=== PATIENT | female | born 2000 | race Caucasian/White ===

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

== ENCOUNTER 2022-11-13 06:48 | Emergency (ER) | payer BC, SELFPAY ==
[2022-11-13 06:49] VITALS: BP 149/87; PULSE 96; RESP 18; TEMP 36.1; O2SAT 98; BMI 37.2
--- NOTE | 2022-11-13 07:15 | ED.VIS.GI ---
HPI HPI - GI History of Present Illness Chief Complaint: Abd Pain Informant: patient Narrative Narrative: Patient is a 22 year old female with no significant past medical history presenting with worsening upper abdominal pain and vomiting. Patient states she had similar symptoms about a month ago around the time her menstrual cycle is due. She notes over the past 2 weeks she has had an increase in frequency of these episodes. She states that upper abdominal pain more in her epigastric region but radiates around her back. States it is sharp. The pain is intermittent. When she does get these episodes she will vomit. She is usually the vomiting makes her feel better but not lately. She notes she had 2 nights last week where she had the symptoms and has been more frequent this week. He reports that her symptoms were worse this week in the morning. She notes that Pepto-Bismol seems to help. She also tried Gas-X without able to keep it down. She had a decrease in the amount of bowel movements. Said darker stools from the Pepto but denies any blood in her stool. Denies any fever or chills. Did try bland diet for the past few days with no help. Denies any known history of GERD or stomach ulcers. Never had any abdominal surgeries. Last menstrual period was about a month ago. She denies any urinary symptoms. Denies any blood in her vomit. No other complaints at this time. Tobacco or illicit drug use. Intermittently drinks alcohol but nothing recently PFSH PFS Home Medications omeprazole 20 mg capsule,delayed release 20 mg PO DAILY #30 CAPSULES 11/13/22 [Rx Last Taken Unknown] ondansetron 4 mg disintegrating tablet 4 mg PO Q8H PRN PRN Nausea #10 tabs 11/13/22 [Rx Last Taken Unknown] Allergy/AdvReac Type Severity Reaction Status Date / Time No Known Allergies Allergy Verified 11/13/22 06:52 Social History Smoking Status: Never smoker ROS ROS ED Constitutional Constitutional ED: Denies chills or fever(s) Cardiovascular Cardiovascular: Denies chest pain Respiratory/Chest Respiratory/Chest: Denies cough or dyspnea Gastrointestinal Gastrointestinal: Reports abdominal pain, nausea and vomiting; Denies constipation, diarrhea or melena Genitourinary Genitourinary ED: Denies dysuria, hematuria or urinary frequency Musculoskeletal Musculoskeletal: Reports back pain; Denies arthralgias or myalgias Integumentary Denies rash Neurologic Neurologic: Denies headache(s) Psychiatric Psychiatric: Denies anxiety EXAM Physical Exam Const Vital Signs: 11/13/22 06:49 11/13/22 08:49 11/13/22 10:39 Temperature 96.9 F L Temperature Source Temporal Pulse Rate 96 86 68 Respiratory Rate 18 16 16 Blood Pressure 149/87 H 136/78 H 138/77 H Blood Pressure Mean 107 97 97 Pulse Ox 98 98 98 Oxygen Delivery Method Room Air Room Air Room Air Positive well nourished and well developed General Appearance ED: well developed and NAD; Negative for pallor HEENT Reports moist mucous membranes normocephalic and atraumatic Eyes PERRL and EOMs intact bilaterally General Eye ED: Negative for scleral icterus Neck supple Resp normal respiratory effort and clear to auscultation bilaterally Cardio regular rate, regular rhythm and no murmurs GI Inspection: Negative for abdominal distention Auscultation: normoactive bowel sounds Palpation: soft and tender epigastric and Adhikari's sign; Negative for guarding or rigid Back/Spine no CVA tenderness Extremity full ROM Neuro Sensorium / Orientation: alert, oriented to person, oriented to place and oriented to time Psych mental status grossly normal and thought process normal Skin no wounds General Skin Exam: Negative for jaundice or pallor MDM MDM MDM Narrative Medical decision making narrative: So if worsening episodes of upper abdominal pain and vomiting. Differential includes peptic ulcer disease, gastritis, cholecystitis and pancreatitis. We will give the patient IV fluids, show small dose of morphine and Zofran for symptom control. We will start with lab work and reevaluate Patient has some mild improvement with medication. Lab work largely normal. Normal CBC, normal white blood cell count, normal hemoglobin, normal CMP with a normal BUN to creatinine ratio. Her lipase is normal. Clinically no findings of labs consistent with acute infection, symptomatic anemia/active bleeding, she is a normal BUN to creatinine ratio is low suspicion for occult GI bleed. Labs are not consistent with pancreatitis or choledocholithiasis/ascending cholangitis. Urinalysis does show 150 ketones and some mild contamination. Is given a liter of IV fluids. Is given a GI cocktail and on repeat evaluation has further improvement of symptoms. Treat her for gastritis versus peptic ulcer disease. Will give referral for surgery as patient likely would benefit from an EGD given her symptomatology. Is given her first dose of pantoprazole in the ER will be started on PPI therapy. Counseled she can also take Tylenol for pain but should avoid NSAIDs. Discussed GERD diet and discussed that it is okay for her to take Pepto-Bismol, Maalox or Tums for breakthrough symptoms. Patient and significant other agreeable with plan of care. Patient discharged home in stable and improved condition. At this time I do not think patient requires any imaging as she does not have any acute laboratory normalities, fever surgical findings on abdominal exam suggestive of a more severe acute intra-abdominal process. Lab Data Attestation: I reviewed the patient's lab results. Labs: Laboratory Results - last 24 hr 11/13/22 11/13/22 07:00 07:05 WBC 10.3 RBC 4.93 Hgb 14.7 Hct 43.7 MCV 88.6 MCH 29.8 MCHC 33.6 RDW Std Deviation 39.5 RDW Coeff of Gonzalo 12.1 Plt Count 354 MPV 10.0 Immature Gran % (Auto) 0.400 Neut % (Auto) 67.2 Lymph % (Auto) 23.1 [place] % (Auto) 8.8 Eos % (Auto) 0.2 Baso % (Auto) 0.3 Absolute Neuts (auto) 6.9 Absolute Lymphs (auto) 2.38 Nucleated RBC % 0 Sodium 139 Potassium 3.9 Chloride 110 H Carbon Dioxide 23.0 Anion Gap 6 BUN 7 Creatinine 0.70 Estim Creat Clear Calc 106.05 Est GFR (MDRD) Af Amer 137 Est GFR (MDRD) Non-Af 113 BUN/Creatinine Ratio 10.0 Glucose 103 Calcium 9.2 Total Bilirubin 1.00 AST 17 ALT 34 Alkaline Phosphatase 104 Total Protein 8.3 H Albumin 4.0 Globulin 4.3 H Albumin/Globulin Ratio 0.9 Lipase 25 Urine Color Yellow Urine Clarity Clear Urine pH 5.0 Ur Specific [place] 1.025 Urine Protein 30 H Urine Glucose (UA) Normal Urine Ketones 150 A* Urine Occult Blood Negative Urine Nitrite Negative Urine Bilirubin 1 H Urine Urobilinogen 1 H Ur Leukocyte Esterase 25 H Urine RBC 0 SEEN Urine WBC 0-5 SEEN Ur Squamous Epith Cells 0-5 SEEN Urine Bacteria 1+ Urine Mucus 0 SEEN Urine Test Negative Discharge Plan Triage Chief Complaint: Abd Pain ED Provider: Godman,Camila Dx/Rx/DC Orders Clinical Impression: Epigastric abdominal pain, Nausea & vomiting Instructions: ED Epigastric Pain Uncertain Cause Prescriptions: New omeprazole 20 mg capsule,delayed release(DR/EC) 20 mg PO DAILY Qty: 30 0RF ondansetron 4 mg tablet,disintegrating 4 mg PO Q8H PRN PRN (Reason: Nausea) Qty: 10 0RF Primary Care Provider: Care Physician,No Primary Referrals: Jerardo Smyth MD [Med Staff - Active Staff] - As soon as possible Care Physician,No Primary [Primary Care Provider] - Activity Restrictions/Additional Instructions: Your lab work was normal today. I do not think you need any CT or ultrasound at this time. If you develop a fever or have a progression or worsening your symptoms please return to the emergency room. I am concerned that you could have a stomach ulcer. Please follow-up with surgery for further evaluation of this pain. Try to adhere to a low acid diet as we discussed. You may take Tylenol but please avoid any anti-inflammatories such as aspirin, Aleve or Advil. Take the medication as prescribed. Make sure you are drinking plenty of fluids as your did show some signs concerning for duration. Disposition Disposition: Home, Self Care
[2022-11-13] MEDS: Ondansetron 4 MG/2 ML Vial IV (07:26)
[2022-11-13] MEDS: 0.9% Normal Saline (1000mL) 1,000 ML 1000 ML IV (07:26)
[2022-11-13] MEDS: Morphine 4 MG/ML Syringe IV (07:27)
[2022-11-13 07:40] LABS: Mucous, Urine 0 SEEN /hpf (<or=2+); Red Blood Cells-Urine 0 SEEN /hpf (0-5)
[2022-11-13 07:42] LABS: Absolute Lymphocyte Count 2.38 X10^3/uL (0.83-4.51); Absolute Neutrophil Count 6.9 X10^3/uL (2.0-7.7); Basophil# 0.03 X10^3/uL; Basophil% 0.3 % (0-1); Eosinophil# 0.02 X10^3/uL; Eosinophils% 0.2 % (0-5); Hematocrit 43.7 % (37-47); Hemoglobin 14.7 g/dL (12.0-15.0); Lymphocyte # 2.38 X10^3/ul (0.83-4.51); Lymphocyte % 23.1 % (19-41); Mean Corp Hgb Conc 33.6 g/dL (32-36); Mean Corpuscular Hgb 29.8 pg (27.0-32.0); Mean Corpuscular Volume 88.6 fL (81-99); Monocyte# 0.91 X10^3/uL; Monocyte% 8.8 % (0-10); NRBC Flagged by Analyzer 0 % (0-5); Neutrophil # 6.91 X10^3/uL (2.7-7.7); Neutrophil % 67.2 % (47-70); Platelet Count 354 K/mm3 (150-450); RBC Distribution Width CV 12.1 % (11.6-14.6); RBC Distribution Width SD 39.5 fl (35.1-43.9); Red Blood Count 4.93 M/mm3 (4.2-5.4); White Blood Count 10.3 K/mm3 (4.4-11.0)
[2022-11-13 07:49] LABS: Color, Urine Yellow (Yellow); Glucose, Dipstick Normal (Normal); Leukocyte Esterase-Dipstick 25 /ul (Negative); Nitrite-Dipstick Negative (Negative); Occult Blood-Urine Negative /ul (Negative); Protein-Dipstick 30 mg/dl (Negative); Specific Gravity, Urine 1.025 (1.002-1.030); Urine Clarity Clear (Clear); Urine Urobilinogen 1 mg/dl (Normal)
[2022-11-13 07:50] LABS: Urine Bilirubin Dipstick 1 mg/dL (Negative)
[2022-11-13 07:51] LABS: Ketone-Dipstick 150 mg/dl (Negative)
[2022-11-13 07:59] LABS: ALB/GLOB Ratio 0.9 RATIO (0.9-2.4); AST(SGOT) 17 U/L (15-37); Alanine Aminotransfer ALT/SGPT 34 U/L (13-56); Alkaline Phosphatase 104 U/L (45-117); Anion Gap 6 (5-15); BUN 7 mg/dL (7-18); Calcium,Total 9.2 mg/dL (8.5-10.1); Chloride 110 mmol/L (98-107); EST Glomerular Filtration Rate 113 mL/min (>60); Est Glom Filt Rate - Afr Amer 137 mL/min (>60); Estimated Creatinine Clearance 106.05 ml/min; Globulin 4.3 g/dL (2.2-4.2); Glucose 103 mg/dL (74-106); Lipase 25 U/L (13-75); Potassium 3.9 mmol/L (3.5-5.1); Protein, Total 8.3 g/dL (6.4-8.2); Sodium Level 139 mmol/L (136-145)
[2022-11-13 08:15] LABS: Bacteria 1+ /hpf (None Seen); Internal QC Validated? YES +Cl - CLEAR BKGD; Pregnancy, Urine Negative Negative; Squamous Epithelial Cells - UA 0-5 SEEN /hpf (5-10); White Blood Cells 0-5 SEEN /hpf (0-5)
[2022-11-13 08:49] VITALS: BP 136/78; PULSE 86; RESP 16; O2SAT 98
[2022-11-13] MEDS: Mag Hydrox/Al Hydrox/Simeth 30 ML UDC PO (09:17)
[2022-11-13 10:39] VITALS: BP 138/77; PULSE 68; RESP 16; O2SAT 98
[2022-11-13] MEDS: Pantoprazole Sodium 20 MG Tablet PO (11:30)
== END 2022-11-13 11:31 | disposition home or self-care (01) ==
PROVIDERS: Emergency Provider Emergency Medicine; Visit Provider Emergency Medicine
DX: R10.13 Epigastric pain (principal); R11.2 Nausea with vomiting, unspecified
CPT/HCPCS: 80053; 81001; 81025; 83690; 85025; 96361; 96374; 96375; 99282; J7030; A4216; J2405

== ENCOUNTER → 2022-12-05 | Outpatient (CLI) | payer BC, SELFPAY ==
--- NOTE | 2022-12-05 09:17 | US_ITS ---
EXAM: US ABDOMEN LIMITED, RIGHT UPPER QUADRANT CLINICAL INDICATION: abdominal pain -- RUQ PAIN X 2 MONTHS TECHNIQUE: Real-time ultrasound of the right upper quadrant with image documentation. COMPARISON: Gallbladder ultrasound 07/15/2016. FINDINGS: LIVER: Increased liver echogenicity consistent with fatty infiltration. Mild hepatomegaly measuring 18 cm. No intrahepatic biliary ductal dilation. GALLBLADDER: Gallstones and sludge in the gallbladder with possible 11 mm stone in the gallbladder neck or proximal common bile duct. Correlation with MRCP is recommended. Negative sonographic Adhikari''s sign. The gallbladder wall measures about 3 mm. No pericholecystic fluid. COMMON BILE DUCT: Borderline common bile duct measuring about 6 mm. PANCREAS: Unremarkable as visualized. No focal abnormality is demonstrated in the pancreas. No pancreatic ductal dilatation. RIGHT KIDNEY: The right kidney measures 4.6 cm in length. There is no hydronephrosis. No shadowing calculus. No focal lesion or perinephric collection is demonstrated. US/Gallbladder IMPRESSION: 1. Increased liver echogenicity consistent with fatty infiltration. 2. Gallstones and sludge in the gallbladder with possible 11 mm stone in the gallbladder neck or proximal common bile duct. Correlation with MRCP is recommended. Electronically Signed: Ramon Lira MD at 11:25 EDT ,
== END | disposition home or self-care (01) ==
PROVIDERS: Referring Provider Surgery; Visit Provider Surgery
DX: R10.11 Right upper quadrant pain (principal)
CPT/HCPCS: 76705

== ENCOUNTER → 2023-02-05 | Outpatient (CLI) | payer BC, SELFPAY ==
[2023-02-05 13:27] LABS: Cholesterol 152 mg/dL (200); High Density Lipoprotein 36 mg/dL; Triglycerides 73 mg/dL; Very Low Density Lipoprotein 15 mg/dL (5-40)
== END | disposition home or self-care (01) ==
LOC: BIMLAB 11:19
PROVIDERS: Visit Provider Internal Medicine
DX: Z13.6 Encounter for screening for cardiovascular disorders (principal)
CPT/HCPCS: 36415; 80061